=== PATIENT | female | born 1965 | race Asian ===

== ENCOUNTER 2018-11-17 08:30 | Emergency (ER) | payer OTHER ==
[~2018-11-17] VITALS: Ht 152.4 cm; Wt 68.0 kg
[~2018-11-17 08:30] MED LIST: CIPR500T4 PO; HYDR-2059 PO; IBUP-1542 PO; LEVO500T48 PO; METR500T PO
[2018-11-17 08:38] VITALS: Ht 152.4 cm; Wt 68.0 kg
[2018-11-17] MEDS ORDERED: LIDOCAINE 1% (MPF) 5 ML VIAL INJ ONE (09:00)
[2018-11-17] MEDS ORDERED: CEPH-443 PO (09:25)
[2018-11-17 10:28] VITALS: BP 123/75; PULSE 69; RESP 18
--- NOTE | 2018-11-17 12:31 | ERD ---
ER Documentation Chief Complaint Chief Complaint abscess @ right abdominal area HPI 53-year-old with abscess to right abdomen. Patient states she has had this abscess before however it just became red and painful. Patient has had no fevers. She was told by her primary doctor to come to the ER to have drainage. She does not use any medications on the area. Medical history denies. Allergy to sulfa. Surgical history is hysterectomy. Social history denies ROS All systems reviewed and are negative except as per history of present illness. Medications Home Meds Active Scripts Cephalexin* (Keflex*) 500 Mg Capsule, 500 MG PO QID for 7 Days, CAP Prov:JULIO RO PA-C 11/17/18 Levofloxacin* (Levaquin*) 500 Mg Tablet, 500 MG PO DAILY, #10 TAB Prov:GUERA ANDREW MD 03/02/14 Metronidazole* (Flagyl*) 500 Mg Tab, 500 MG PO TID, #30 Prov:GUERA ANDREW MD 03/02/14 Reported Medications Ciprofloxacin Hcl* (Ciprofloxacin Hcl*) 500 Mg Tablet, 500 MG PO BID, TAB 02/18/14 Hydrocodone Bit-Acetaminophen* (Hydrocodone-APAP*) 10-325 Tablet, 1 TAB PO Q8NARC PRN for PAIN, TAB 02/18/14 Ibuprofen* (Motrin*) 600 Mg Tab, 600 MG PO Q6H PRN for PAIN, TAB 02/01/14 Allergies Allergies: Coded Allergies: Sulfa (Sulfonamide Antibiotics) (Verified Allergy, Unknown, hives, 02/01/14) PMhx/Soc History of Surgery: Yes (HYSTERECTOMY, OVARIAN CYST REMOVAL) Anesthesia Reaction: No Hx Neurological Disorder: No Hx Respiratory Disorders: No Hx Cardiac Disorders: No Hx Psychiatric Problems: No Hx Miscellaneous Medical Probl: Yes (RECURRENT ABSCESS ON ABDOMEN) Hx Alcohol Use: No Hx Substance Use: No Hx Tobacco Use: No Smoking Status: Never smoker FmHx Family History: No diabetes, No coronary disease, No other Physical Exam Vitals Vital Signs Date Temp Pulse Resp B/P (MAP) Pulse Ox O2 O2 Flow FiO2 Time Delivery Rate 11/17/18 98.1 69 18 123/75 98 Room Air 10:28 (91) 11/17/18 97.8 76 18 136/84 96 08:38 (101) Physical Exam GENERAL: The patient is well-appearing, well-nourished, in no acute distress CHEST: Clear to auscultation bilaterally. There are no rales, wheezes or rhonchi. HEART: Regular rate and rhythm. No murmurs, clicks, rubs or gallops. No S3 or S4. ABDOMEN:Soft, nontender and nondistended. Good bowel sounds. No rebound or guarding. No gross peritonitis. No gross organomegaly or masses. SKIN: Erythema noted to the right abdomen with mild induration and fluctuance. Results 24 hrs Current Medications Medications Dose Sig/Dillon Start Time Status Last (Trade) Ordered Route PRN Stop Time Admin Dose Reason Admin Lidocaine 5 ml ONCE ONCE 11/17/18 DC (Xylocaine INJ 09:00 11/17/18 1% (Mpf)) 09:01 Procedures/MDM Abscess Incision and Drainage with irrigation by me: Location: Right abdomen Anesthesia: Local 1% Lidocaine Technique: Irrigated. Disrupted loculations w/ instrumentation Packing: iodoform packing placed Complications: Neurovascularly intact post procedure 48 hour wound check. Scar minimization instructions given. MDM: 53-year-old female presenting with abscess. Patient able to be placed on antibiotics. She is allergic to sulfa so I will place on Keflex. Patient did have a head to the abscess I believe this is an infected epidermal inclusion cyst. Patient is recommended to return in 2 days for packing to be removed and wound check. Patient is told symptoms change or worsen to return immediately to the ER. All questions answered at discharge Departure Diagnosis: Primary Impression: Abscess Condition: Stable Patient Instructions: Abscess, Incision And Drainage Referrals: [facility] YOU HAVE RECEIVED A MEDICAL SCREENING EXAM AND THE RESULTS INDICATE THAT YOU DO NOT HAVE A CONDITION THAT REQUIRES URGENT TREATMENT IN THE EMERGENCY DEPARTMENT. FURTHER EVALUATION AND TREATMENT OF YOUR CONDITION CAN WAIT UNTIL YOU ARE SEEN IN YOUR DOCTORS OFFICE WITHIN THE NEXT 1-2 DAYS. IT IS YOUR RESPONSIBILITY TO MAKE AN APPOINTMENT FOR FOLOW-UP CARE. IF YOU HAVE A PRIMARY DOCTOR --you should call your primary doctor and schedule an appointment IF YOU DO NOT HAVE A PRIMARY DOCTOR YOU CAN CALL OUR PHYSICIAN REFERRAL HOTLINE AT IF YOU CAN NOT AFFORD TO SEE A PHYSICIAN YOU CAN CHOSE FROM THE FOLLOWING [facility] [address] [facility]. [facility] [address] [facility] [facility] [address] [facility] [address] [facility] [address] [facility]. [facility] [address] Additional Instructions: FOLLOW UP WITH YOUR PRIMARY CARE PHYSICIAN TOMORROW.Return to this facility if you are not improving as expected. JULIO RO PA-C November 17, 2018 12:31
== END 2018-11-17 10:00 | disposition home or self-care (01) ==
LOC: FTE 08:30
DX: L02.211 Cutaneous abscess of abdominal wall (principal)
CPT/HCPCS: 10060; Z7502

== ENCOUNTER 2018-11-19 08:31 | Emergency (ER) | payer OTHER ==
[~2018-11-19] VITALS: Ht 154.9 cm; Wt 67.6 kg
[~2018-11-19 08:31] MED LIST changes: +CEPH-443 PO
[2018-11-19 08:33] VITALS: BP 121/61; PULSE 85; RESP 16; Ht 154.9 cm; Wt 67.6 kg
--- NOTE | 2018-11-19 11:59 | ERD ---
ER Documentation Chief Complaint Chief Complaint PT here for evaluation of abcess after I and D 2 days ago. HPI 53-year-old female presenting for recheck of abscess to her right abdomen. P atgarett had an I&D performed 2 days ago with packing placed. Patient is taking antibiotics as prescribed. Patient denies any fevers or severe pain. She states that the area is itchy but does not elicit pain. Patient denies any other medical problems. NKDA. Surgical history denies. Social history denies ROS All systems reviewed and are negative except as per history of present illness. Medications Home Meds Active Scripts Cephalexin* (Keflex*) 500 Mg Capsule, 500 MG PO QID for 7 Days, CAP Prov:JULIO RO PA-C 11/17/18 Levofloxacin* (Levaquin*) 500 Mg Tablet, 500 MG PO DAILY, #10 TAB Prov:GUERA ANDREW MD 03/02/14 Metronidazole* (Flagyl*) 500 Mg Tab, 500 MG PO TID, #30 Prov:GUERA ANDREW MD 03/02/14 Reported Medications Ciprofloxacin Hcl* (Ciprofloxacin Hcl*) 500 Mg Tablet, 500 MG PO BID, TAB 02/18/14 Hydrocodone Bit-Acetaminophen* (Hydrocodone-APAP*) 10-325 Tablet, 1 TAB PO Q8NARC PRN for PAIN, TAB 02/18/14 Ibuprofen* (Motrin*) 600 Mg Tab, 600 MG PO Q6H PRN for PAIN, TAB 02/01/14 Allergies Allergies: Coded Allergies: Sulfa (Sulfonamide Antibiotics) (Verified Allergy, Unknown, hives, 02/01/14) PMhx/Soc History of Surgery: Yes (HYSTERECTOMY, OVARIAN CYST REMOVAL) Anesthesia Reaction: No Hx Neurological Disorder: No Hx Respiratory Disorders: No Hx Cardiac Disorders: No Hx Psychiatric Problems: No Hx Miscellaneous Medical Probl: Yes (RECURRENT ABSCESS ON ABDOMEN) Hx Alcohol Use: No Hx Substance Use: No Hx Tobacco Use: No Smoking Status: Never smoker FmHx Family History: No diabetes, No coronary disease, No other Physical Exam Vitals Vital Signs Date Temp Pulse Resp B/P (MAP) Pulse Ox O2 O2 Flow FiO2 Time Delivery Rate 11/19/18 98.1 85 16 121/61 97 08:33 (81) Physical Exam GENERAL: The patient is well-appearing, well-nourished, in no acute distress CHEST: Clear to auscultation bilaterally. There are no rales, wheezes or rhon chi. HEART: Regular rate and rhythm. No murmurs, clicks, rubs or gallops. No S3 or S4. ABDOMEN:Soft, nontender and nondistended. Good bowel sounds. No rebound or guarding. No gross peritonitis. No gross organomegaly or masses. No Christine sign or McBurney point tenderness. SKIN: previous incision and drainage site noted to the abdomen with packing in place. Lymphatic streaking. No induration. No continued purulence. Procedures/MDM ER course: Packing removed and no purulence extracted. MDM: 53-year-old female presenting for wound check. Patient's abscess is healing appropriately and I do not feel the need to be continued packing or further procedures. Patient will be told to continue taking antibiotics as previously prescribed. Patient is told symptoms change or worsen to return immediately to the ER. All questions answered at discharge Departure Diagnosis: Primary Impression: Encounter for wound re-check Condition: Stable Patient Instructions: Wound Care Referrals: [facility] YOU HAVE RECEIVED A MEDICAL SCREENING EXAM AND THE RESULTS INDICATE THAT YOU DO NOT HAVE A CONDITION THAT REQUIRES URGENT TREATMENT IN THE EMERGENCY DEPARTMENT. FURTHER EVALUATION AND TREATMENT OF YOUR CONDITION CAN WAIT UNTIL YOU ARE SEEN IN YOUR DOCTORS OFFICE WITHIN THE NEXT 1-2 DAYS. IT IS YOUR RESPONSIBILITY TO MAKE AN APPOINTMENT FOR FOLOW-UP CARE. IF YOU HAVE A PRIMARY DOCTOR --you should call your primary doctor and schedule an appointment IF YOU DO NOT HAVE A PRIMARY DOCTOR YOU CAN CALL OUR PHYSICIAN REFERRAL HOTLINE AT IF YOU CAN NOT AFFORD TO SEE A PHYSICIAN YOU CAN CHOSE FROM THE FOLLOWING [facility] [address] [facility] [address] [facility] [facility] [address] [facility] [facility] [address] [facility] [address] [facility]. [facility]. [address] Additional Instructions: Call your primary care doctor TOMORROW for an appointment during the next 1-2 days.See the doctor sooner or return here if your condition worsens before your appointment time. JULIO RO PA-C November 19, 2018 11:59
== END 2018-11-19 09:05 | disposition home or self-care (01) ==
LOC: FTE 08:31
DX: Z48.01 Encounter for change or removal of surgical wound dressing (principal)
CPT/HCPCS: 99281

== ENCOUNTER 2018-11-25 09:17 | Emergency (ER) | payer OTHER ==
[~2018-11-25] VITALS: Ht 162.6 cm; Wt 68.0 kg
[2018-11-25 09:52] VITALS: BP 119/69; PULSE 74; RESP 16; Ht 162.6 cm; Wt 68.0 kg
[2018-11-25] MEDS ORDERED: DOCU-144 PO (11:50)
[2018-11-25] MEDS ORDERED: HC30CR25 TOP (11:50)
--- NOTE | 2018-11-25 12:00 | ERD ---
ER Documentation Chief Complaint Chief Complaint DARK COLORED STOOLS & CONSTIPATION X2 DAYS HPI 53-year-old female presents with a history of hard stools and rectal bleeding for last 2 days. She describes the bleeding is only when having a bowel movement. She denies clots,. She describes the blood as dark red. She denies abdominal pain, vomiting, urinary complaints, additional symptoms. Patient denies history of colonoscopy. ROS All systems reviewed and are negative except as per history of present illness. Medications Home Meds Active Scripts Hydrocortisone* Topical (Hydrocortisone* Topical) 2.5%-28.3 Gm Cream..g., 1 APPLIC TOP BID, #1 TUB Prov:LORETTA SILVA MD 11/25/18 Docusate Sodium* (Colace*) 100 Mg Capsule, 100 MG PO BID, #60 CAP Prov:LORETTA SILVA MD 11/25/18 Cephalexin* (Keflex*) 500 Mg Capsule, 500 MG PO QID for 7 Days, CAP Prov:JULIO RO PA-C 11/17/18 Levofloxacin* (Levaquin*) 500 Mg Tablet, 500 MG PO DAILY, #10 TAB Prov:GUERA ANDREW MD 03/02/14 Metronidazole* (Flagyl*) 500 Mg Tab, 500 MG PO TID, #30 Prov:GUERA ANDREW MD 03/02/14 Reported Medications Ciprofloxacin Hcl* (Ciprofloxacin Hcl*) 500 Mg Tablet, 500 MG PO BID, TAB 02/18/14 Hydrocodone Bit-Acetaminophen* (Hydrocodone-APAP*) 10-325 Tablet, 1 TAB PO Q8NARC PRN for PAIN, TAB 02/18/14 Ibuprofen* (Motrin*) 600 Mg Tab, 600 MG PO Q6H PRN for PAIN, TAB 02/01/14 Allergies Allergies: Coded Allergies: Sulfa (Sulfonamide Antibiotics) (Verified Allergy, Unknown, hives, 02/01) PMhx/Soc History of Surgery: Yes (HYSTERECTOMY, OVARIAN CYST REMOVAL) Anesthesia Reaction: No Hx Neurological Disorder: No Hx Respiratory Disorders: No Hx Cardiac Disorders: No Hx Psychiatric Problems: No Hx Miscellaneous Medical Probl: Yes (RECURRENT ABSCESS ON ABDOMEN) Hx Alcohol Use: No Hx Substance Use: No Hx Tobacco Use: No FmHx Family History: No diabetes, No coronary disease, No other Physical Exam Vitals Vital Signs Date Temp Pulse Resp B/P (MAP) Pulse Ox O2 O2 Flow FiO2 Time Delivery Rate 11/25/18 98.1 74 16 119/69 98 09:52 (86) Physical Exam Const: No acute distress Head: Atraumatic Eyes: Normal Conjunctiva ENT: Normal External Ears, Nose and Mouth. Neck: Full range of motion. No meningismus. Resp: Clear to auscultation bilaterally Cardio: Regular rate and rhythm, no murmurs Abd: Soft, non tender, non distended. Normal bowel sounds. Rectal exam with director engineering shows stool in the vault which is dark brown. There is no melanotic stools or gross blood. There is a small appears to be open external hemorrhoid. No erythema, fluctuance. Skin: No petechiae or rashes Back: No midline or flank tenderness Ext: No cyanosis, or edema Neur: Awake and alert Psych: Normal Mood and Affect Result Diagram: 11/25/18 1123 11/25/18 1123 Results 24 hrs Laboratory Tests Test 11/25/18 11:23 White Blood Count 8.8 10^3/ul Red Blood Count 5.32 10^6/ul Hemoglobin 14.9 g/dl Hematocrit 48.3 % Mean Corpuscular Volume 90.8 fl Mean Corpuscular Hemoglobin 28.0 pg Mean Corpuscular Hemoglobin Concent 30.8 g/dl Red Cell Distribution Width 14.3 % Platelet Count 198 10^3/UL Mean Platelet Volume 10.4 fl Immature Granulocytes % 0.300 % Neutrophils % 81.8 % Lymphocytes % 12.9 % Monocytes % 3.5 % Eosinophils % 0.9 % Basophils % 0.6 % Nucleated Red Blood Cells % 0.0 /100WBC Immature Granulocytes # 0.030 10^3/ul Neutrophils # 7.2 10^3/ul Lymphocytes # 1.1 10^3/ul Monocytes # 0.3 10^3/ul Eosinophils # 0.1 10^3/ul Basophils # 0.1 10^3/ul Nucleated Red Blood Cells # 0.0 10^3/ul Sodium Level 146 mmol/L Potassium Level 4.6 mmol/L Chloride Level 108 mmol/L Carbon Dioxide Level 31 mmol/L Anion Gap 7 Blood Urea Nitrogen 15 mg/dl Creatinine 0.81 mg/dl Est Glomerular Filtrat Rate mL/min > 60 mL/min Glucose Level 108 mg/dl Calcium Level 10.7 mg/dl Total Bilirubin 0.3 mg/dl Direct Bilirubin 0.00 mg/dl Indirect Bilirubin 0.3 mg/dl Aspartate Amino Transf (AST/SGOT) 26 IU/L Alanine Aminotransferase (ALT/SGPT) 21 IU/L Alkaline Phosphatase 68 IU/L Total Protein 7.6 g/dl Albumin 4.4 g/dl Globulin 3.20 g/dl Albumin/Globulin Ratio 1.37 Procedures/MDM CBC is normal. Patient presents with a history of constipation for last 3 days with rectal bleed. She does have an external hemorrhoid suggesting possible cause of bleeding. She has no signs of obstruction, active bleeding, abdominal pain, is well-appearing. Symptoms did not suggest upper GI bleed. Recommending colonoscopy for patient given her age and symptoms. We will treat for cons tipation with Colace and for her external hemorrhoids with hydrocortisone cream. The patient was stable with no new complaints during the ER course. Clinically, there is no current evidence to suggest meningitis, sepsis, acute abdomen, pneumonia, stroke, acute coronary syndrome, pulmonary embolism, aortic dissection or any other emergent condition appearing to require further evaluation or hospitalization. Patient counseled regarding my diagnostic impression and care plan. Prior to discharge all questions answered. Pt agrees with treatment plan and understands strict return precautions. Pt is instructed to follow up with primary care provider within 24-48 hours. Precautionary instructions provided including instructions to return to the ER if not improving or for any worsening or changing symptoms or concerns. Disclaimer: Inadvertent spelling and grammatical errors are likely due to EHR/dictation software use and do not reflect on the overall quality of patient care. Also, please note that the electronic time recorded on this note does not necessarily reflect the actual time of the patient encounter. Departure Diagnosis: Primary Impression: Rectal bleed Additional Impression: Constipation Constipation type: unspecified constipation type Qualified Codes: K59.00 - Constipation, unspecified Condition: Stable Patient Instructions: Constipation (Adult), Rectal Bleed, Stable Referrals: ROSMERY ALVARADO MD Additional Instructions: Laboratory work normal today. Recommend follow-up with gastroenterology for colonoscopy. Recheck for fevers, vomiting, abdominal pain, worsening bleeding, new or worsening symptoms. May need authorization from primary doctor for specialist visit. LORETTA SILVA MD November 25, 2018 12:00
== END 2018-11-25 12:14 | disposition home or self-care (01) ==
LOC: FTE 09:17
DX: K62.5 Hemorrhage of anus and rectum (principal)
CPT/HCPCS: 36415; 80053; 85025; Z7502; 99284